=== PATIENT | female | born 1995 ===

== ENCOUNTER 2020-04-15 21:36 | Emergency (ER) | payer SELFPAY ==
--- NOTE | 2020-04-15 22:15 | EDM.PDOC ---
ED HPI GENERAL MEDICAL PROBLEM - General Chief Complaint: Behavioral/Psych Stated Complaint: EMS ARRIVAL Time Seen by Provider: 04/15/20 21:40 - History of Present Illness INITIAL COMMENTS - FREE TEXT/NARRATIVE: History of present illness: [] The patient is depressed. She says she lives in a hotel room with her 2-year-old. Unfortunately her mother pays the rent and helps provide her food. When her mother visits she brings the patient's half sibling. That causes her a lot of stress and she does not get along with them. The patient is willing to accept help and not interested in hurting herself or anyone else. She does use profanity and she admits she drinks alcohol. She does not think she drinks too much. He thinks other people meddling in her business is what causes her stress. Has no physical complaint tonight. Review of systems: As per history of present illness and below otherwise all systems reviewed and negative. Past medical history: As per history of present illness and as reviewed below otherwise noncontributory. Surgical history: As per history of present illness and as reviewed below otherwise noncontributory. Social history: No reported history of drug or alcohol abuse. Family history: As per history of present illness and as reviewed below otherwise noncontributory. Physical exam: Constitutional - well developed, well-nourished and in no acute distress HEENT - normocephalic, no evidence of trauma - external nose and mouth normal - no mass in neck and no JVD - mucosae moist EYES - full EOM, PERRL, no icterus - no evidence of inflammation, injection, or drainage Respiratory - no respiratory distress, equal bilateral expansion, lungs clear to auscultation and no abnormal lung sounds Cardiovascular - Regular Rhythm with S1 and S2 appreciated and no murmur, gallop or rub. GI - abdomen soft without distension or organomegaly - normal bowel sounds - no guard or rebound Musculoskeletal no gross deformity of long bones or joints - no tenderness, swelling or edema Neurologic - Alert and oriented times four - CN II-XII grossly intact - motor sensory and coordination symmetrically normal Psychiatric -somewhat labile affect but for the most part appropriate mood and affect with normal thought content Hematologic - No petechiae or purpura - mucosa appropriate color and sclera not pale - normal nail bed color and refill Integument - no rash or evidence of trauma - normal turgor Diagnostics: [] Therapeutics: [] Impression: Situational, adjustment disorder, alcohol abuse Patient given social service and psychological help suggestions. [] Plan: [] Definitive disposition and diagnosis as appropriate pending reevaluation and review of above. - Related Data Allergies Allergy/AdvReac Type Severity Reaction Status Date / Time cephalexin [From Keflex] Allergy Other Verified 04/15/20 21:41 Home Meds: Home Meds . [No Known Home Meds] 04/15/20 [History] Past Medical History Psychiatric History: Reports: Addiction - Infectious Disease History Infectious Disease History: Reports: None - Past Surgical History HEENT Surgical History: Reports: Oral Surgery Musculoskeletal Surgical History: Reports: Shoulder Surgery Social & Family History - Family History Family Medical History: Noncontributory - Tobacco Use Smoking Status *Q: Current Every Day Smoker Years of Tobacco use: 5 Packs/Tins Daily: 1 - Caffeine Use Caffeine Use: Reports: None - Recreational Drug Use Recreational Drug Use: Yes Recreational Drug Type: Reports: Marijuana/Hashish ED ROS GENERAL - Review of Systems Review Of Systems: Comprehensive ROS is negative, except as noted in HPI. ED EXAM, GENERAL - Physical Exam Exam: See Below Free Text/Narrative:: My physical exam as in the HPI Course - Vital Signs Last Recorded V/S: Last Vital Signs Temp 97.6 F 04/15/20 21:41 Pulse 108 H 04/15/20 21:41 Resp 22 H 04/15/20 21:41 BP 124/87 04/15/20 21:41 Pulse Ox 94 L 04/15/20 21:41 Departure - Departure Time of Disposition: 22:13 Disposition: Home, Self-Care 01 Condition: Good Clinical Impression: Alcohol abuse, Adjustment disorder - Discharge Information Instructions: Alcohol Use Disorder, Adjustment Disorder, Adult Additional Instructions: [facility] Address: [address] [place] [id number] Hours: walk in 9 AM M-F [facility] [address] [place] [id number] [address] The following information is given to patients seen in the emergency department who are being discharged to home. This information is to outline your options for follow-up care. We provide all patients seen in our emergency department with a follow-up referral. The need for follow-up, as well as the timing and circumstances, are variable depending upon the specifics of your emergency department visit. If you don't have a primary care physician on staff, we will provide you with a referral. We always advise you to contact your personal physician following an emergency department visit to inform them of the circumstance of the visit and for follow-up with them and/or the need for any referrals to a consulting specialist. The emergency department will also refer you to a specialist when appropriate. This referral assures that you have the opportunity for follow-up care with a specialist. All of these measure are taken in an effort to provide you with optimal care, which includes your follow-up. Under all circumstances we always encourage you to contact your private physician who remains a resource for coordinating your care. When calling for follow-up care, please make the office aware that this follow-up is from your recent emergency room visit. If for any reason you are refused follow-up, please contact the [facility] Emergency Department at and asked to speak to the emergency department charge nurse. Sepsis Event Note (ED) - Evaluation Sepsis Screening Result: No Definite Risk - Focused Exam Vital Signs: Vital Signs Temp Pulse Resp BP Pulse Ox 04/15/20 21:41 97.6 F 108 H 22 H 124/87 94 L
== END 2020-04-15 22:45 | disposition home or self-care (01) ==
LOC: MW.ED 21:36
DX: F43.29 Adjustment disorder with other symptoms (principal); F10.10 Alcohol abuse, uncomplicated; F17.210 Nicotine dependence, cigarettes, uncomplicated; Z88.1 Allergy status to other antibiotic agents; Z98.890 Other specified postprocedural states
CPT/HCPCS: 99283; 99284

== ENCOUNTER 2020-10-28 20:42 | Emergency (ER) | payer OTHER ==
--- NOTE | 2020-10-28 21:10 | EDM.PDOC ---
ED HPI GENERAL MEDICAL PROBLEM - General Chief Complaint: Neurological Problem Stated Complaint: EMS ARRIVAL Time Seen by Provider: 10/28/20 21:01 - History of Present Illness INITIAL COMMENTS - FREE TEXT/NARRATIVE: CHIEF COMPLAINT(S): Medical Clearance HISTORY OF PRESENT ILLNESS: This is a 25-year-old woman without any significant past medical history who comes to the emergency department with a chief complaint of Medical Clearance. The patient states that they have no symptoms and are here for medical clearance. The patient states that they are feeling well and they deny any chest pain, shortness of breath, abdominal pain, nausea, vomiting. She denies any headache, numbness, tingling, weakness. Per EMS the patient was at a hotel being served warrants. The police noted that she was very sleepy and hard to respond with possible heroin use. Upon EMS arrival the patient was ANO x4 and denied any complaints at all. In regards to this the patient states that she had some alcohol and then they had food and they went to sleep. This is why she was sleepy. REVIEW OF SYSTEMS: Constitutional: Denies fever, chills. Eyes: Denies eye pain Ears, Nose, Mouth, & Throat: Denies earache Cardiovascular: Denies chest pain Respiratory: Denies shortness of breath Gastrointestinal: Denies Nausea, vomiting, diarrhea, hematochezia. Genitourinary: Denies hematuria Skin:Denies a rash MSK: Denies joint pain Neurological: Denies blurred vision, numbness, tingling, weakness Psychiatric: Denies depression PAST MEDICAL HISTORY: As per history of present illness and as reviewed below otherwise noncontributory. SURGICAL HISTORY: As per history of present illness and as reviewed below otherwise noncontributory. SOCIAL HISTORY: As per history of present illness and as reviewed below otherwise noncontributory. FAMILY HISTORY: As per history of present illness and as reviewed below otherwise noncontributory. EXAMINATION OF ORGAN SYSTEMS/BODY AREAS: Constitutional: Blood pressure was 139/81, heart rate 97, respiratory rate 20 with an oxygen saturation 97% on room air. Temperature 36.4 General: Overall well-appearing woman who is in no acute distress. Appears mildly intoxicated. Psychiatric: Appropriate mood and affect. Eyes: No scleral icterus or conjunctival erythema ENMT: Moist mucous membranes. No pharyngeal erythema Cardiovascular: Regular, rate, and rhythm. No gallops, murmurs, or rubs. Bilateral upper extremity pulses symmetric and intact. No peripheral edema. No JVD. Respiratory: Lungs clear to auscultation bilaterally. No wheezes, rales, or rhonchi. Gastrointestinal: Soft, non-tender, non-distended. Normoactive bowel sounds Genitourinary: No suprapubic tenderness Musculoskeletal: Normal range of motion. Skin: No lesions or abrasions. Neurological: AOx4. CN grossly intact. Strength 5/5 in bilateral upper and lower extremity. Sensation is intact bilaterally in upper and lower extremity. Gait appears normal. Finger to nose, heel to black, rapid alternating movements intact. MEDICAL DECISION MAKING AND COURSE IN THE ED WITH INTERPRETATION/REVIEW OF DIAGNOSTIC STUDIES: This is a 25-year-old woman without any significant past medical history who comes to the emergency department for a medical clearance. The patient is currently asymptomatic without any complaints and normal vital signs. At this time, I do not believe any further workup is indicated, therefore the patient was discharged in custody. The medical clearance form was completed and they were instructed to come to the ED for any new or concerning symptoms. The patient expressed understanding and was amenable to discharge at this time. DISPOSITION: The patient was discharged in police custody in stable condition. CONDITION: Good PROCEDURES: None FINAL IMPRESSION(S)/DIAGNOSES: 1. Acute encounter for medical screening examination 2. Acute Alcohol Intoxication Sal Cohen M.D. - Related Data Allergies Allergy/AdvReac Type Severity Reaction Status Date / Time cephalexin [From Keflex] Allergy Other Verified 10/28/20 20:51 Home Meds: Home Meds . [No Known Home Meds] 04/15/20 [History] Past Medical History Psychiatric History: Reports: Addiction - Infectious Disease History Infectious Disease History: Reports: None - Past Surgical History HEENT Surgical History: Reports: Oral Surgery Musculoskeletal Surgical History: Reports: Shoulder Surgery Social & Family History - Family History Family Medical History: No Pertinent Family History - Caffeine Use Caffeine Use: Reports: None - Recreational Drug Use Recreational Drug Use: Yes Drug Use in Last 12 Months: Yes Recreational Drug Use Frequency: Patient Refuses To Answer ED ROS GENERAL - Review of Systems Review Of Systems: See Below ED EXAM, GENERAL - Physical Exam Exam: See Below Course - Vital Signs Last Recorded V/S: Last Vital Signs Temp 36.4 C 10/28/20 20:44 Pulse 88 10/28/20 21:18 Resp 18 10/28/20 21:18 BP 130/86 10/28/20 21:18 Pulse Ox 97 10/28/20 21:18 Departure - Departure Time of Disposition: 21:09 Disposition: Home, Self-Care 01 Condition: Fair Clinical Impression: Alcoholic intoxication Qualifiers: Complication of substance-induced condition: uncomplicated Qualified Code(s): F10.920 - Alcohol use, unspecified with intoxication, uncomplicated - Discharge Information *PRESCRIPTION DRUG MONITORING PROGRAM REVIEWED*: No *COPY OF PRESCRIPTION DRUG MONITORING REPORT IN PATIENT TOMMY: No Instructions: Alcohol Intoxication, [id number] Forms: ED Department Discharge Additional Instructions: Your evaluated today on an emergent basis. At this time your vitals were normal and you are medically cleared to go with the officers. If you have any symptoms at all please return to the emergency department. Please follow-up with your primary care physician. [facility] [address] [place] [address] [place] [address] The patient is informed of any results of their evaluation and diagnostic workup and all questions are answered. They are given discharge instructions and return precautions. The patient is stable for discharge. The patient states they understand and agree with the plan and that they will return if their symptoms get worse or if they have any new concerns. The following information is given to patients seen in the emergency department who are being discharged to home. This information is to outline your options for follow-up care. We provide all patients seen in our emergency department with a follow-up referral. The need for follow-up, as well as the timing and circumstances, are variable depending upon the specifics of your emergency department visit. If you don't have a primary care physician on staff, we will provide you with a referral. We always advise you to contact your personal physician following an emergency department visit to inform them of the circumstance of the visit and for follow-up with them and/or the need for any referrals to a consulting specialist. The emergency department will also refer you to a specialist when appropriate. This referral assures that you have the opportunity for follow-up care with a specialist. All of these measure are taken in an effort to provide you with optimal care, which includes your follow-up. Under all circumstances we always encourage you to contact your private physician who remains a resource for coordinating your care. When calling for follow-up care, please make the office aware that this follow-up is from your recent emergency room visit. If for any reason you are refused follow-up, please contact the [facility] Emergency Department at and asked to speak to the emergency department charge nurse. Sepsis Event Note (ED) - Evaluation Sepsis Screening Result: No Definite Risk - Focused Exam Vital Signs: Vital Signs Temp Pulse Resp BP Pulse Ox 10/28/20 21:18 88 18 130/86 97 10/28/20 20:44 36.4 C 97 20 139/81 97
== END 2020-10-28 21:18 | disposition home or self-care (01) ==
LOC: MW.ED 20:42
DX: F10.120 Alcohol abuse with intoxication, uncomplicated (principal); Z88.1 Allergy status to other antibiotic agents
CPT/HCPCS: 99283